=== PATIENT | female | born 1955 | race Caucasian/White ===

== ENCOUNTER 2017-09-19 18:46 | Observation (INO) | payer MEDICARE, OTHER ==
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
[2017-09-19 19:49] LABS: Basophils # (A) 0.1 k/uL (0-0.2); Basophils % (A) 1 %; CH 29.6; CHCM 31.7; Eosinophils # (A) 0.3 k/uL (0-0.7); Eosinophils % (A) 2 %; HCT 39.6 % (34.0-46.0); HGB 12.6 gm/dL (11.4-16.0); Luc # (Auto) 0.15; Luc % (Auto) 1; Lymphocytes # (A) 2.7 k/uL (1.0-4.8); Lymphocytes % (A) 25 %; MCH 29.8 pg (25.0-35.0); MCHC 31.8 g/dL (31.0-37.0); MCV 93.8 fL (80.0-100.0); Mean Platelet Volume 7.8; Monocytes # (A) 0.5 k/uL (0-1.0); Monocytes % (A) 5 %; Neutrophils # (A) 7.2 k/uL (1.3-7.7); Neutrophils % (A) 66 %; RBC 4.22 m/uL (3.80-5.40); RDW 14.2 % (11.5-15.5); WBC 10.8 k/uL (3.8-10.6); WBC (Perox) 11.28
[2017-09-19] MEDS ORDERED: ACETAMINOPHEN TAB 325 MG TAB PO STA (19:51)
[2017-09-19 19:53] LABS: ALT 23 U/L (9-52); AST 14 U/L (14-36); Alkaline Phosphatase 96 U/L (38-126); Anion Gap 9 mmol/L; Blood Urea Nitrogen 16 mg/dL (7-17); Calcium 9.3 mg/dL (8.4-10.2); Carbon Dioxide 24 mmol/L (22-30); Chloride 107 mmol/L (98-107); Glucose 116 mg/dL (74-99); Non-African American GFR(MDRD) >60 (>60 ml/min/1.73 sqM); Potassium 4.2 mmol/L (3.5-5.1); Sodium 140 mmol/L (137-145); Total Bilirubin 0.3 mg/dL (0.2-1.3); Total Protein 6.7 g/dL (6.3-8.2)
[2017-09-19 20:17] LABS: Appearance,Urine Clear (Clear); Bilirubin,Urine Negative (Negative); Glucose,Urine (UA) Negative (Negative); Ketones,Urine Trace (Negative); Leukocyte Esterase,Urine Negative (Negative); Nitrite,Urine Negative (Negative); Protein,Urine Trace (Negative); Specific Gravity,Urine 1.014 (1.001-1.035); UA Billing (MACRO vs. MICRO) CHEM
[2017-09-19] MEDS ORDERED: SODIUM CHLORIDE 0.9% 1,000 ML IV ONE (20:20)
[2017-09-19 20:41] VITALS: RESP 16
[2017-09-19] MEDS ORDERED: HYDROcodone/APAP 7.5-325MG 1 EACH TAB PO PRN (21:19)
[2017-09-19] MEDS: DIAZEPAM 5 MG TAB PO PRN (21:40)
[2017-09-20] MEDS ORDERED: CYCLOBENZAPRINE 10 MG TAB PO PRN (11:35)
[2017-09-20] MEDS ORDERED: IBUPROFEN 200 MG TAB PO PRN ×2 (11:35→12:07)
[2017-09-20] MEDS ORDERED: DIAZEPAM 5 MG TAB PO PRN (11:35)
[2017-09-20] MEDS: DIAZEPAM 5 MG TAB PO PRN (12:59)
[2017-09-20] MEDS ORDERED: HYDROcodone/APAP 7.5-325MG 1 EACH TAB PO PRN (13:35)
[2017-09-20] MEDS ORDERED: VENLAFAXINE HCL ER 150 MG CAP PO SCH (13:45)
[2017-09-20] MEDS ORDERED: PRIMIDONE 50 MG TAB PO SCH (13:45)
[2017-09-20] MEDS ORDERED: CARBIDOPA-LEVODOPA 25-100 MG 1 EACH TAB PO SCH (16:00)
[2017-09-20] MEDS ORDERED: GABAPENTIN 300 MG CAP PO SCH (16:00)
[2017-09-20 16:44] VITALS: BP 101/60; PULSE 61; TEMP 98.3
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
[2017-09-20] MEDS ORDERED: BACLOFEN 10 MG TAB PO SCH (21:00)
[2017-09-20] MEDS ORDERED: MIRTAZAPINE 15 MG TAB PO SCH (21:00)
[2017-09-20] MEDS ORDERED: ATORVASTATIN 40 MG TAB PO SCH (21:00)
[2017-09-20] MEDS ORDERED: FAMOTIDINE 20 MG TAB PO SCH (21:00)
[2017-09-20] MEDS ORDERED: LISINOPRIL 20 MG TAB PO SCH (21:00)
[2017-09-20] MEDS ORDERED: PROPRANOLOL LA 60 MG CAP.SA.24H PO SCH (21:00)
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
[2017-09-24] MEDS ORDERED: ERGOCALCIFEROL 50,000 UNIT CAP PO SCH (09:00)
--- NOTE | 2017-09-28 17:12 | DS ---
DISCHARGE SUMMARY FINAL DIAGNOSES: 1. Depression possible suicidal ideation with right wrist abrasion. 2. Hypertension. 3. History of Parkinson disease. DISCHARGE DISPOSITION: The patient is transferred to inpatient psych. HISTORY OF PRESENT ILLNESS: This 62-year-old woman with past medical was admitted with depression with possible suicidal ideation with right wrist abrasion. Patient was seen by Psychiatry. Patient be transferred to inpatient psych for further evaluation treatment. On exam, vitals stable. Cardiovascular: S1, S2. Abdomen is soft. Nervous system: No focal deficits. Please refer to the discharge medications for medications. MMODL / IJN: [id number] /
== END 2017-09-20 21:49 ==
LOC: EC 18:46 → 3SUR 20:20
PROVIDERS: ADMIT Hospitalist; ATTEND Hospitalist
DX: F32.9 Major depressive disorder, single episode, unspecified (principal); S60.811A Abrasion of right wrist, initial encounter; I10 Essential (primary) hypertension; G20 Parkinson's disease; F43.9 Reaction to severe stress, unspecified; Z79.899 Other long term (current) drug therapy; W45.8XXA Other foreign body or object entering through skin, initial encounter; Z88.0 Allergy status to penicillin; Z91.030 Bee allergy status; Z91.018 Allergy to other foods; Z91.040 Latex allergy status
CPT/HCPCS: 99285; 36415; 80053; 85025; 81003; G0378 ×2

== ENCOUNTER 2017-09-20 22:00 | Inpatient (IN) | payer MEDICARE, MEDICAID ==
[2017-09-20] MEDS ORDERED: ACETAMINOPHEN TAB 325 MG TAB PO PRN (22:11)
[2017-09-20] MEDS ORDERED: MAG HYDROX/AL HYDROX/SIMETH 30 ML CUP PO PRN (22:11)
[2017-09-20] MEDS ORDERED: IBUPROFEN 400 MG TAB PO PRN (23:02)
[2017-09-21] MEDS: MIRTAZAPINE 15 MG TAB PO SCH ×3 (00:03→20:49)
[2017-09-21] MEDS ORDERED: ERGOCALCIFEROL 50,000 UNIT CAP PO SCH (09:00)
[2017-09-21] MEDS: GABAPENTIN 300 MG CAP PO SCH ×3 (09:29→20:50)
[2017-09-21] MEDS: PRIMIDONE 50 MG TAB PO SCH ×2 (09:29→20:49)
[2017-09-21] MEDS: CARBIDOPA-LEVODOPA 25-100 MG 1 EACH TAB PO SCH ×3 (09:29→20:50)
[2017-09-21] MEDS: LISINOPRIL 20 MG TAB PO SCH ×2 (09:29→20:49)
[2017-09-21] MEDS: FAMOTIDINE 20 MG TAB PO SCH ×2 (09:29→20:49)
[2017-09-21] MEDS: VENLAFAXINE HCL ER 150 MG CAP PO SCH (09:30)
[2017-09-21] MEDS: BACLOFEN 10 MG TAB PO SCH ×2 (09:31→20:48)
[2017-09-21] MEDS: CYCLOBENZAPRINE 10 MG TAB PO SCH ×3 (09:31→20:51)
[2017-09-21] MEDS: HYDROcodone/APAP 7.5-325MG 1 EACH TAB PO PRN (09:44)
[2017-09-21] MEDS: DIAZEPAM 5 MG TAB PO PRN (09:45)
[2017-09-21] MEDS: BACITRACIN 500 UNIT/GM OINT 28.4 GM TUBE TOPICAL SCH (11:42)
--- NOTE | 2017-09-21 14:28 | P.CONS ---
History of Present Illness - Reason for Consult Consult date: 09/21/17 Regarding hypertension - History of Present Illness This 62-year-old woman with a past medical history of hypertension and Parkinson 's disease was admitted to medical floor with the complaints of depression. Patient also had superficial abrasions on the right wrist. Patient was medically stable. Patient reports significant social stressors at home. The patient was monitored closely in significantly and the patient was transferred to inpatient psych unit at this time. There was no history of for chest pain, palpitation, headache, loss of consciousness, seizures. Review of Systems REVIEW OF SYSTEMS: ENT: No diminished vision or hearing. CARDIOVASCULAR: Mentioned earlier. RESPIRATORY: As mentioned earlier. GI: No nauscea, vomiting or diarrhea. : No dysuria or retention. NERVOUS SYSTEM: No numbness or weakness. ALLERGY/IMMUNOLOGY: No asthma or hay fever. MUSCULOSKELETAL: As mentioned earlier. HEMATOLOGY/ONCOLOGY: No history of anemia. ENDOCRINE: No history of diabetes or hypothyroidism. CONSTITUTIONAL: As mentioned earlier. DERMATOLOGY: Superficial aberration right wrist. PSYCHIATRY: Mentioned earlier. RHEUMATOLOGY: Negative. Past Medical History Past Medical History: Hypertension Additional Past Medical History / Comment(s): Parkinsons disease History of Any Multi-Drug Resistant Organisms: None Reported Past Surgical History: Tubal Ligation Past Anesthesia/Blood Transfusion Reactions: No Reported Reaction Smoking Status: Never smoker Medications and Allergies Home Medications Medication Instructions Recorded Confirmed Type Baclofen [Lioresal] 10 mg PO BID 09/19/17 09/21/17 History Cyclobenzaprine [Flexeril] 10 mg PO TID 09/19/17 09/21/17 History Diazepam [Valium] 10 mg PO BID PRN 09/19/17 09/21/17 History Ergocalciferol (Vitamin D2) 50,000 unit PO WE 09/19/17 09/21/17 History [Vitamin D2] HYDROcodone/APAP 7.5-325MG [[place] 1 tab PO Q12HR PRN 09/19/17 09/21/17 History 7.5-325] Ibuprofen [Motrin] 200 - 400 mg PO Q6HR PRN 09/19/17 09/21/17 History Mirtazapine [Remeron] 15 mg PO HS 09/19/17 09/21/17 History Propranolol HCl [Propranolol HCl 60 mg PO HS 09/19/17 09/21/17 History ER] Ranitidine HCl 150 mg PO BID 09/19/17 09/21/17 History Atorvastatin [Lipitor] 40 mg PO HS 09/20/17 09/21/17 History Carbidopa-Levodopa 25-100 mg 2 tab PO TID 09/20/17 09/21/17 History [Sinemet 25-100 mg] Gabapentin [Neurontin] 300 mg PO TID 09/20/17 09/21/17 History Lisinopril [Zestril] 20 mg PO BID 09/20/17 09/21/17 History Primidone [Mysoline] 50 mg PO BID 09/20/17 09/21/17 History Venlafaxine HCl ER [Effexor Xr] 150 mg PO DAILY 09/20/17 09/21/17 History Allergies Allergy/AdvReac Type Severity Reaction Status Date / Time latex Allergy Rash/Hives Verified 09/21/17 07:12 Penicillins Allergy Anaphylaxis Verified 09/21/17 07:12 strawberry Allergy Anaphylaxis Verified 09/21/17 07:12 venom-honey bee Allergy Anaphylaxis Verified 09/21/17 07:12 Physical Exam Vitals: Vital Signs Temp Pulse Resp BP 09/21/17 09:48 82 16 113/74 09/21/17 07:00 98.4 F 68 18 84/52 09/21/17 00:47 98.0 F 77 16 108/75 Intake and Output 09/20/17 09/21/17 09/21/17 22:59 06:59 14:59 Other: Weight 77.666 kg On exam, alert and oriented x3. HEENT: Conjunctivae normal. eyes normal. NECK: No JVD. No thyroid enlargement. No LNs CARDIOVASCULAR: S1, S2 muffled. No murmur RESPIRATION: Breath sounds diminished in the bases. No rhonchi or crackles. No bronchial breathing. ABDOMEN: Soft, nontender . No guarding. no masses palpable. No ascites, No hepatosplenomegaly.Bowel sounds heard. LEGS: No edema. no swelling NERVOUS SYSTEM: Cranial N 2-12 grossly normal. Moves all 4 limbs. No focal deficits. No sensory deficit. No signs of cerebellar dysfucntion. Skin: Superficial abrasions right wrist Joints: No active swelling. No inflammation. Lymphatic system. No LN neck axilla or groin. Assessment and Plan Assessment: Assessment 1. Right wrist abrasion. 2. Hypertension 3. Depression 4. History of Parkinson's disease Plan For this 62-year-old woman who was admitted with the multiple medical issues at this time I recommend to continue the current medications. Monitor blood sugars closely. I would also recommend the topical antibiotics for the right wrist aberration. I would also recommend the patient to follow closely with the primary physician outpatient setting. Thank you for letting us participate in the care of the patient thank you
[2017-09-21] MEDS: ATORVASTATIN 40 MG TAB PO SCH (20:48)
[2017-09-21] MEDS: PROPRANOLOL LA 60 MG CAP.SA.24H PO SCH (20:49)
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
[2017-09-22] MEDS: CARBIDOPA-LEVODOPA 25-100 MG 1 EACH TAB PO SCH ×3 (08:47→20:51)
[2017-09-22] MEDS: FAMOTIDINE 20 MG TAB PO SCH (08:47)
[2017-09-22] MEDS: GABAPENTIN 300 MG CAP PO SCH ×3 (08:47→20:52)
[2017-09-22] MEDS: VENLAFAXINE HCL ER 150 MG CAP PO SCH (08:47)
[2017-09-22] MEDS: CYCLOBENZAPRINE 10 MG TAB PO SCH ×3 (08:47→20:52)
[2017-09-22] MEDS: BACLOFEN 10 MG TAB PO SCH ×2 (08:47→20:51)
[2017-09-22] MEDS: LISINOPRIL 20 MG TAB PO SCH ×2 (08:48→20:51)
[2017-09-22] MEDS: PRIMIDONE 50 MG TAB PO SCH ×2 (08:48→20:51)
[2017-09-22] MEDS: BACITRACIN 500 UNIT/GM OINT 28.4 GM TUBE TOPICAL SCH (09:46)
[2017-09-22] MEDS: HYDROcodone/APAP 7.5-325MG 1 EACH TAB PO PRN (13:45)
--- NOTE | 2017-09-22 14:10 | XR ---
EXAMINATION TYPE: XR sacrum coccyx DATE OF EXAM: 09/22/2017 COMPARISON: NONE HISTORY: Pain Three views are submitted. Sacrum is intact. SI joints are symmetric. Coccyx appears to be intact. Visualized pelvic structures intact. Calcifications the pelvis are likely vascular. Arthropathy of the hips. Degenerative change lower lumbar spine with severe changes L5-S1. IMPRESSION: 1. No acute fracture. 2 severe degenerative disc disease L5-S1
--- NOTE | 2017-09-22 16:06 | P.PN ---
Subjective Progress Note Date: 09/22/17 This 62-year-old woman who was admitted to inpatient psych for evaluation had a fall in the bathroom. Patient apparently fell without any loss of balance. No dizziness and no syncope noted. Patient is complaining of some lower back pain at this time. Able to ambulate. X-rays have been ordered. Objective - Vital Signs Vital signs: Vital Signs Temp 98.5 F 09/22/17 07:13 Pulse 85 09/22/17 12:28 Resp 18 09/22/17 12:28 BP 113/68 09/22/17 12:28 Pulse Ox 97 09/22/17 12:28 Intake & Output 09/21/17 09/22/17 09/22/17 18:59 06:59 18:59 Weight 79.832 kg - Exam On exam, alert and oriented x3. HEENT: Conjunctivae normal. eyes normal. NECK: No JVD. No thyroid enlargement. No LNs CARDIOVASCULAR: S1, S2 muffled. No murmur RESPIRATION: Breath sounds diminished in the bases. No rhonchi or crackles. No bronchial breathing. ABDOMEN: Soft, nontender . No guarding. no masses palpable. No ascites, No hepatosplenomegaly.Bowel sounds heard. LEGS: No edema. no swelling NERVOUS SYSTEM: Cranial N 2-12 grossly normal. Moves all 4 limbs. No focal deficits. No sensory deficit. No signs of cerebellar dysfucntion. Skin: no ulcer no rash Joints: No active swelling. No inflammation. Lymphatic system. No LN neck axilla or groin. examination of the back minimal tenderness lower back present Assessment and Plan Assessment: Assessment 1. Right wrist abrasion. 2. Hypertension 3. Depression 4. History of Parkinson's disease neck s 5. Fall and back pain. 6. DJD back Plan This 62-year-old woman who had a fall is complaining of back pain at this time. X-ray showed some DJD. At this time I would recommend to continue conservative plan of management. Will happy to review if there is no improvement. Recommended close follow-up in the outpatient setting. See orders for detail. Thank you
[2017-09-22] MEDS: MIRTAZAPINE 15 MG TAB PO SCH (20:51)
[2017-09-22] MEDS: ATORVASTATIN 40 MG TAB PO SCH (20:51)
[2017-09-22] MEDS: PROPRANOLOL LA 60 MG CAP.SA.24H PO SCH (20:51)
--- NOTE | 2017-09-22 23:20 | P.HP ---
Psychiatric H&P - . H&P Date: 09/22/17 History & Physical: VITALS: 3 Temp 98.6 F 09/22/17 16:22 Pulse 70 09/22/17 20:54 Resp 18 09/22/17 20:54 BP 113/79 09/22/17 20:54 Pulse Ox 98 09/22/17 20:54 HPI: PSYCHIATRIC HISTORY: None PAST MEDICAL HISTORY: Past Medical History: Hypertension Additional Past Medical History / Comment(s): Parkinson's disease History of Any Multi-Drug Resistant Organisms: None Reported Past Surgical History: Tubal Ligation Past Anesthesia/Blood Transfusion Reactions: No Reported Reaction Smoking Status: Never smoker HOME MEDICATIONS: 3 Medication Instructions Recorded Confirmed Baclofen [Lioresal] 10 mg PO BID 09/19/17 09/21/17 Cyclobenzaprine [Flexeril] 10 mg PO TID 09/19/17 09/21/17 Diazepam [Valium] 10 mg PO BID PRN 09/19/17 09/21/17 Ergocalciferol (Vitamin D2) 50,000 unit PO WE 09/19/17 09/21/17 [Vitamin D2] HYDROcodone/APAP 7.5-325MG [[place]berry 1 tab PO Q12HR PRN 09/19/17 09/21/17 7.5-325] Ibuprofen [Motrin] 200 - 400 mg PO Q6HR PRN 09/19/17 09/21/17 Mirtazapine [Remeron] 15 mg PO HS 09/19/17 09/21/17 Propranolol HCl [Propranolol HCl 60 mg PO HS 09/19/17 09/21/17 ER] Ranitidine HCl 150 mg PO BID 09/19/17 09/21/17 Atorvastatin [Lipitor] 40 mg PO HS 09/20/17 09/21/17 Carbidopa-Levodopa 25-100 mg 2 tab PO TID 09/20/17 09/21/17 [Sinemet 25-100 mg] Gabapentin [Neurontin] 300 mg PO TID 09/20/17 09/21/17 Lisinopril [Zestril] 20 mg PO BID 09/20/17 09/21/17 Primidone [Mysoline] 50 mg PO BID 09/20/17 09/21/17 Venlafaxine HCl ER [Effexor Xr] 150 mg PO DAILY 09/20/17 09/21/17 ALLERGIES: 3 Allergy/AdvReac Type Severity Reaction Status Date / Time latex Allergy Rash/Hives Verified 09/21/17 07:12 Penicillins Allergy Anaphylaxis Verified 09/21/17 07:12 strawberry Allergy Anaphylaxis Verified 09/21/17 07:12 venom-honey bee Allergy Anaphylaxis Verified 09/21/17 07:12 CHEMICAL DEPENDENCY HISTORY: Denies FAMILY HISTORY: Denies SOCIAL HISTORY: environmental: lives at home with son, daughter in law, 2 dogs, 10 cats : no hindu: Yazidi marital: access to firearms: no sexual history: heterosexual, not sexually active safety at home: yes STRENGTHS/WEAKNESSES: Willingness to seek help Poor coping skills MENTAL STATUS EXAM: Appearance: alert, adequate hygiene, appears stated age, unsteady gait now using wheelchair Behavior: no psychomotor agitation or psychomotor retardation, no abnormal movements, fair eye contact Attitude: cooperative Speech: normal rate, rhythm, fluency, articulation, volume, and prosody; primary language: Ukrainian Mood: depressed Affect: congruent, constricted Thought processes: linear Thought content: patient does not appear to be responding to internal stimuli; patient denies auditory and visual hallucinations, no delusions appreciated Insight: fair Judgment: limited Cognitive: oriented to all 3 spheres, average intelligence
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
[2017-09-23] MEDS: BACLOFEN 10 MG TAB PO SCH ×2 (08:53→21:02)
[2017-09-23] MEDS: PRIMIDONE 50 MG TAB PO SCH ×2 (08:53→22:07)
[2017-09-23] MEDS: VENLAFAXINE HCL ER 150 MG CAP PO SCH (08:53)
[2017-09-23] MEDS: FAMOTIDINE 20 MG TAB PO SCH (08:53)
[2017-09-23] MEDS: CYCLOBENZAPRINE 10 MG TAB PO SCH ×3 (08:53→22:07)
[2017-09-23] MEDS: GABAPENTIN 300 MG CAP PO SCH ×3 (08:53→21:03)
[2017-09-23] MEDS: CARBIDOPA-LEVODOPA 25-100 MG 1 EACH TAB PO SCH ×3 (08:54→21:03)
[2017-09-23] MEDS: BACITRACIN 500 UNIT/GM OINT 28.4 GM TUBE TOPICAL SCH (08:55)
[2017-09-23] MEDS: HYDROcodone/APAP 7.5-325MG 1 EACH TAB PO PRN (08:57)
[2017-09-23] MEDS: LISINOPRIL 20 MG TAB PO SCH ×2 (08:58→22:07)
[2017-09-23] MEDS: MAGNESIUM HYDROXIDE 2,400 MG/10 ML CUP PO PRN (14:38)
[2017-09-23] MEDS: ATORVASTATIN 40 MG TAB PO SCH (21:02)
[2017-09-23] MEDS: MIRTAZAPINE 15 MG TAB PO SCH (21:03)
[2017-09-23] MEDS: PROPRANOLOL LA 60 MG CAP.SA.24H PO SCH (22:07)
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
[2017-09-24] MEDS: CARBIDOPA-LEVODOPA 25-100 MG 1 EACH TAB PO SCH ×3 (08:42→21:22)
[2017-09-24] MEDS: BACLOFEN 10 MG TAB PO SCH ×2 (08:42→21:22)
[2017-09-24] MEDS: VENLAFAXINE HCL ER 150 MG CAP PO SCH (08:42)
[2017-09-24] MEDS: FAMOTIDINE 20 MG TAB PO SCH (08:42)
[2017-09-24] MEDS: CYCLOBENZAPRINE 10 MG TAB PO SCH ×3 (08:42→21:24)
[2017-09-24] MEDS: GABAPENTIN 300 MG CAP PO SCH ×3 (08:43→21:24)
[2017-09-24] MEDS: LISINOPRIL 20 MG TAB PO SCH ×2 (08:43→21:22)
[2017-09-24] MEDS: PRIMIDONE 50 MG TAB PO SCH ×2 (08:43→21:22)
[2017-09-24] MEDS: BACITRACIN 500 UNIT/GM OINT 28.4 GM TUBE TOPICAL SCH (08:48)
[2017-09-24] MEDS: DIAZEPAM 5 MG TAB PO PRN ×2 (10:13→21:25)
[2017-09-24] MEDS: MAGNESIUM HYDROXIDE 2,400 MG/10 ML CUP PO PRN (10:14)
[2017-09-24] MEDS: HYDROcodone/APAP 7.5-325MG 1 EACH TAB PO PRN ×2 (10:16→21:26)
[2017-09-24] MEDS: POLYETHYLENE GLYCOL 3350 17 GM POWD.PACK PO SCH (12:00)
[2017-09-24] MEDS: PROPRANOLOL LA 60 MG CAP.SA.24H PO SCH (21:22)
[2017-09-24] MEDS: MIRTAZAPINE 15 MG TAB PO SCH (21:22)
[2017-09-24] MEDS: ATORVASTATIN 40 MG TAB PO SCH (21:22)
--- NOTE | 2017-09-24 22:52 | P.PN ---
Subjective Progress Note Date: 09/24/17 Principal diagnosis: Major depressive disorder, recurrent, severe without psychotic features INTERVAL HISTORY: Patient doing well, no acute events over night. No new concerns. Contact with APS is still pending. At this time, patient denies SI/HI/AVH. MENTAL STATUS EXAM: * Appearance: alert, hygiene adequate, appears stated age, unsteady gait now using wheelchair * Behavior: psychomotor retardation+, no abnormal movements, fair eye contact * Attitude: cooperative * Speech: normal rate, rhythm, fluency, articulation, volume soft; primary language: Persian * Mood: depressed * Affect: constricted, congruent * Thought processes: linear * Thought content: patient does not appear to be responding to internal stimuli ; patient denies auditory and visual hallucinations, no delusions appreciated * Insight: fair * Judgment: limited * Cognitive: oriented to all 3 spheres, average intelligence PLAN: Continue current regimen Pulse oximetry ordered, patient is on multiple medications that lower her BP and could suppress O2 especially at night Sacrum and Coccyx X-ray report reviewed, no acute fracture noted SW will follow up with APS to determine if patient can return home Patient encouraged to attend group, recreational, and activity therapies Disposition pending APS Objective - Vital Signs Vital signs: Vital Signs Temp 97.5 F L 09/24/17 16:30 Pulse 74 09/24/17 16:30 Resp 18 09/24/17 16:30 BP 94/63 09/24/17 16:30 Pulse Ox 95 09/24/17 16:30
[2017-09-25 07:10] VITALS: TEMP 98.3
[2017-09-25] MEDS: BACITRACIN 500 UNIT/GM OINT 28.4 GM TUBE TOPICAL SCH (09:24)
[2017-09-25] MEDS: BACLOFEN 10 MG TAB PO SCH (09:24)
[2017-09-25] MEDS: CARBIDOPA-LEVODOPA 25-100 MG 1 EACH TAB PO SCH (09:25)
[2017-09-25] MEDS: CYCLOBENZAPRINE 10 MG TAB PO SCH (09:29)
[2017-09-25] MEDS: HYDROcodone/APAP 7.5-325MG 1 EACH TAB PO PRN (09:30)
[2017-09-25] MEDS: VENLAFAXINE HCL ER 150 MG CAP PO SCH (09:30)
[2017-09-25] MEDS: GABAPENTIN 300 MG CAP PO SCH (09:30)
[2017-09-25] MEDS: FAMOTIDINE 20 MG TAB PO SCH (09:30)
[2017-09-25] MEDS: POLYETHYLENE GLYCOL 3350 17 GM POWD.PACK PO SCH (09:31)
[2017-09-25] MEDS: LISINOPRIL 20 MG TAB PO SCH (09:35)
[2017-09-25] MEDS: PRIMIDONE 50 MG TAB PO SCH (09:39)
[2017-09-25 14:18] VITALS: BP 128/92; PULSE 67; RESP 18
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
== END 2017-09-25 14:57 | disposition home or self-care (01) | DRG 885 ==
LOC: 3SUR 22:00 → 3MHU 22:09
PROVIDERS: ADMIT Psychiatry & Neurology Psychiatry; ATTEND Psychiatry & Neurology Psychiatry
DX: F33.2 Major depressive disorder, recurrent severe without psychotic features (principal); G20 Parkinson's disease; I10 Essential (primary) hypertension; M19.90 Unspecified osteoarthritis, unspecified site; S60.811A Abrasion of right wrist, initial encounter; W19.XXXA Unspecified fall, initial encounter; X78.9XXA Intentional self-harm by unspecified sharp object, initial encounter; Z79.899 Other long term (current) drug therapy; Z91.040 Latex allergy status; Z91.030 Bee allergy status; Z88.0 Allergy status to penicillin; Z91.018 Allergy to other foods
CPT/HCPCS: 72220